=== PATIENT | male | born 1985 | race Caucasian/White ===

== ENCOUNTER 2017-03-03 23:59 | Emergency (ER) | payer OTHER ==
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
--- NOTE | ~2017-03-03 | CR226 ---
[facility] A Service of [facility] [place] RADIOLOGY TEXT RESULTS PATIENT: RITU DUBOIS LOCATION: SED : [birth year] UNIT #: [id number] AGE: [address]: Benja Yanez MD SEX: M ORDER DR: [id number] [place] [address] [id number] E MR#: [id number] Acc #: [id number] NAME: RITU DUBOIS. : 1985 SEX: M STUDY DATE/TIME: 03/04/2017 1:04 UNIT: SED ROOM: STUDY DESCRIPTION: CR Shoulder 1 View Lt Attending Physician: Benja Yanez M.D. Ordering Physician: Benja Yanez M.D. Primary Care Physician: No Primary Care Physician MEDICAL IMAGING REPORT This report is preliminary unless electronic signature is present. EXAM Single AP view of the left shoulder. DATE 03/04/2017 at 0104 HISTORY Postreduction left shoulder dislocation today. COMPARISON Right shoulder radiographs 03/04/2017 at 0018. FINDINGS Satisfactory reduction of previous left shoulder dislocation. No fracture is seen. No AC or CC separation is seen. Left lung apex is clear. IMPRESSION Satisfactory reduction of previous left shoulder dislocation. No fracture is seen. Dictated by... Marian Malave M.D. THIS IS AN ELECTRONICALLY VERIFIED REPORT Marian Malave M.D. at 03/04/2017 10:[address] [facility]/leslie TD: 03/04/2017 09:13 JOB #: [id number] [facility] A Service of [facility] [place] RADIOLOGY TEXT RESULTS PATIENT: RITU DUBOIS LOCATION: SED : [birth year] UNIT #: [id number] AGE: [address]: Benja Yanez MD SEX: M ORDER DR: MEDICAL IMAGING REPORT Page 1 of 1
[~2017-03-03 23:59] MED LIST: DICLOFENAC PO; PHENERGAN PO; VICODIN 5/1 TAB 5/50 PO
[2017-03-04] MEDS ORDERED: NO MEDICATIONS (00:13)
== END 2017-03-04 01:51 | disposition home or self-care (01) ==
LOC: SED 23:59
DX: S43.085A Other dislocation of left shoulder joint, initial encounter (principal); F17.200 Nicotine dependence, unspecified, uncomplicated; Y09 Assault by unspecified means; Y92.410 Unspecified street and highway as the place of occurrence of the external cause
CPT/HCPCS: 23650; 73020; 73030; 99152; 99153; 99283; J3010